=== PATIENT | male | born 1935 | race Caucasian/White ===

== ENCOUNTER 2016-06-13 14:06 | Emergency (ER) | payer MEDICARE, OTHER ==
[~2016-06-13] VITALS: Ht 180.3 cm; Wt 97.7 kg
[2016-06-13 14:06] VITALS: BP 122/74; PULSE 69; RESP 10; O2SAT 96
[~2016-06-13 14:06] MED LIST: CALCIUM 250+D1 EACH PO; CYA1000I IM; Docusate Sodium PO; EZET1TAB7 PO; LOSA50TA37 PO; NITR0.4T SL; Oxycodone Hcl PO; POLY17PO6 PO; SYN.15T2 PO; TRIA1TAB5 PO
[2016-06-13] MEDS ORDERED: 0.9% Sodium Chloride 1,000 ML IV ONE (14:07)
--- NOTE | 2016-06-13 14:16 | ED.REPORT ---
HPI-Syncope Date of Service Jun 13, 2016 ED Provider: Mr. Goodman is an 80 y/o man with history of CAD who presents today for syncopal episode while donating blood today around 12:15 PM. Pt reports that he felt lightheaded, weak, and nauseous after finishing a blood donation. He also had a cold sweat. He got up to stand but felt lightheaded so he sat back down into the donation chair recliner. He does not recall actually fainting and reports that he did not lose consciousness. He reports no loss of bowel or bladder function. He did not hit his head because he remained in the recliner chair. He last ate at breakfast this morning and took his medications this morning prior to donating blood. His symptoms have since resolved. He had episodes of vertigo 5-6 years ago but he reports that today's episode does not feel similar to the vertigo he had in the past. Today, he felt lightheaded. He does not have chest pain, dyspnea, fatigue, numbness, or tingling. Nursing Notes Stated Complaint: SYNCOPE Chief Complaint: General Complaint Nursing Notes Reviewed: Yes Allergies: Coded Allergies: No Known Allergies (Unverified , 06/13/16) Scheduled Aspirin (Aspirin) 325 Mg Tablet 325 MG PO DAILY Calcium Carbonate/Vitamin D3 (Calcium 250+D Tablet) 1 Each Tablet 1 EACH PO BID Clopidogrel Bisulfate (Plavix) 75 Mg Tablet 75 MG PO DAILY Cyanocobalamin (Cyanocobalamin Injection) 1,000 Mcg/1 Ml Vial 1,000 MCG IM 2xmonth Doxycycline Hyclate (Doxycycline Hyclate) 100 Mg Capsule 100 MG PO DAILY Ezetimibe/Simvastatin 10-40 mg (Vytorin 10-40 mg) 1 Each Tablet 1 EACH PO HS Levothyroxine (Synthroid) 150 Mcg Tablet 150 MCG PO AM Losartan Potassium (Losartan Potassium) 50 Mg Tablet 100 MG PO AM Polyethylene Glycol 3350 (Miralax) 17 Gm/Pkt Powd.pack 17 GM PO DAILY Triamterene/HCTZ 37.5-25 mg (Triamterene/HCTZ 37.5-25 mg) 1 Each Capsule 1 CAPSULE PO DAILY Scheduled PRN ([Docusate Sodium]) 100 MG CAPSULE 100 MG PO DAILY PRN PRN For Constipation Nitroglycerin SL (Nitrostat) 0.4 Mg Tab.subl 0.4 MG SL Q5MIN PRN PRN For Chest Pain General Time Seen by Provider: 14:25 Chief Complaint Almost passed out Syncope Description: First episode Hx Obtained From: Patient Associated with: Reports: Diaphoresis, Lightheaded, Weakness, Denies: Abdominal pain, Back pain, Chest pain, Fever, Flank pain, Headache, Numbness, Shortness of breath Risk-Syncope CAD Risk Stratification Hyperlipidemia Hypertension Known CADNo Amphetamine, No Cocaine, No Diabetes mellitus, No Smoking Past Medical History Past Medical History Hypertension CAD with a stent placed in 2009 Past Surgical History umbilical hernia basal cell carcinoma removed from right catholic Smoking History Never Smoker Social History Alcohol Use: Denies alcohol use Drug Use: Denies drug use Other Social History: Ambulatory Status Independent Review of Systems Basic Review of Systems : No dysuria, No frequency Hematologic: No bleeding, No bruising Constitutional: Denies: Chills, Fatigue, Fever Respiratory: Denies: Non-productive cough Cardiovascular: Denies: Chest pain GI: Denies: Abdominal pain, Diarrhea, Vomiting Musculoskeletal: Denies: Back pain Skin: Reports Diaphoresis Neurologic: Denies: Bladder dysfunction, Bowel dysfunction, Numbness Physical Exam Initial Vital Signs Vital Signs (First) Date Time Temp Pulse Resp B/P Pulse Ox O2 Delivery O2 Flow Rate FiO2 06/13/16 14:06 36.5 69 10 122/74 96 Room Air Initial VS: Reviewed Head / Eyes: Atraumatic, Normocephalic, PERRL ENT: Mucous membranes moist, Conjunctiva normal, No scleral icterus Neck: Supple, Non-tender, Full range of motion Abdomen / GI: Soft, Non-tender, No guarding, No rebound, No distention Back: No CVA tenderness Upper Extremities: Vascular intact, Neuro intact, No swelling, No tenderness Skin: Warm, Dry, No cyanosis Psychiatric: Mood/affect normal, Behavior normal, Normal thought content General/Constitutional: Awake, Alert, No acute distress, Well appearing, Cooperative Respiratory / Chest: Breath sounds NL, Breath sounds = bilat, No respiratory distress, No rales, No rhonchi, No wheezing Cardiovascular: Heart rate NL, Regular rhythm, Heart sounds NL, No gallop, No murmurs, No rubs Lower Extremity / Pelvis / MS: No swelling, Non-tender Neurologic: Oriented X3, Speech NL, CN II - XII intact Interpretation & Diagnostics Lab Results Interpretation Result Diagram: 06/13/16 1410 06/13/16 1410 Test 06/13/16 14:10 White Blood Count 6.1th/mm3 (3.8-10.1) Red Blood Count 5.40mil/mm3 (4.40-5.80) Hemoglobin 16.9g/dL (13.8-17.2) Hematocrit 47.6% (41.0-50.0) Mean Corpuscular Volume 88.1fL (81-100) Mean Corpuscular Hemoglobin 31.3pg (27.0-35.0) Mean Corpuscular Hemoglobin Concent 35.5% (32.0-37.0) Red Cell Distribution Width 12.6% (12.3-15.4) Platelet Count 207bil/L (150-400) Neutrophils (%) (Auto) 59.1% (40-74) Lymphocytes (%) (Auto) 28.9% (14-46) Monocytes (%) (Auto) 9.1% (4-12) Eosinophils (%) (Auto) 2.3% (0-5) Basophils (%) (Auto) 0.3% (0-3) Sodium Level 137mEq/L (134-144) Potassium Level 3.4mEq/L (3.5-5.2) Chloride Level 97mEq/L (97-108) Carbon Dioxide Level 26mmol/L (18-29) Blood Urea Nitrogen 13mg/dL (8-27) Creatinine 1.03mg/dL (0.76-1.27) Estimat Glomerular Filtration Rate 73mL/min (>59) Glucose Level 113mg/dL (60-99) Calcium Level 9.0mg/dL (8.5-10.1) Total Bilirubin 1.0mg/dL (0.0-1.2) Aspartate Amino Transf (AST/SGOT) 20U/L (0-50) Alanine Aminotransferase (ALT/SGPT) 15U/L (0-44) Alkaline Phosphatase 51U/L (25-160) Troponin T < 0.010ug/L (0.0-0.011) Total Protein 6.6g/dL (6.4-8.4) Albumin 4.3g/dL (3.4-5.0) Re-Eval/Medical Decision Med Decision/Clinical Course 1. Syncopal episode -Pt reports that his symptoms have resolved -Repeat EKG shows normal sinus rhythm -Troponin negative -Pt was asymptomatic standing and walking Irvin episode temporarily related to drying variety without preceding high- risk features or other ongoing symptoms, patient is now asymptomatic workup is overall unremarkable. Patient will be discharged. Re-Evaluation/Progress : Time of Eval: 15:38 )( Re-Eval Neurologic Exam: Alert, Gait normal Patient Status: Condition resolved Re-Evaluation/Progress Note: Had pt stand and walk the length of the hallway. Pt remained asymptomatic during standing and walking. DDx: ACS, pulmonary embolism, anxiety, musculoskeletal, thoracic outlet syndrome, cervical nerve impingement Discharge & Departure Impression: Primary Impression: Syncope Disposition: Home Discharge Condition All VS Reviewed: Yes Condition: Stable Patient Instructions: Hypotension (ED) Additional Instructions: The EKG performed and the blood work done tonight was not concerning for a heart problem. You likely had a low blood pressure after donating blood. Drink plenty of fluids today. Follow-up with your primary care provider in one week. Seek medical attention if you experience: loss of consciousness, numbness, tingling, weakness in her arms or legs, trouble speaking, chest pain, shortness of breath, or have a bowel or bladder accident. Referrals: OTHER,PHYSICIAN (PCP) Hernandez Momin MD 1 Week Attending Statement The patient was seen and examined together with Dr. West on 06/13/16 and I have added additional information to the note above. copies to: Hernandez Momin MD, Timothy S DO Jun 13, 2016 14:16 Kim West DO Jun 13, 2016 14:41
[2016-06-13] MEDS ORDERED: DOXY100C2 PO (14:22)
[2016-06-13] MEDS ORDERED: TRIA1CAP5 PO (14:22)
[2016-06-13] MEDS ORDERED: ASPI325T32 PO (14:22)
[2016-06-13] MEDS ORDERED: CLOP75TA3 PO (14:22)
[2016-06-13 14:36] LABS: BASOPHILS % (AUTO) 0.3 % (0-3); EOSINOPHILS % (AUTO) 2.3 % (0-5); MONOCYTES % (AUTO) 9.1 % (4-12); Mean Corpuscular Hemoglobin 31.3 pg (27.0-35.0); Mean Corpuscular Volume 88.1 fL (81-100); NEUTROPHILS % (AUTO) 59.1 % (40-74); Platelet Count 207 bil/L (150-400)
[2016-06-13 15:02] VITALS: BP 122/74; PULSE 74; RESP 16; O2SAT 97
[2016-06-13 16:22] VITALS: BP 135/73; PULSE 85; RESP 22; O2SAT 97
[2016-06-13 16:23] VITALS: BP 126/74; PULSE 85; RESP 22; O2SAT 97
== END 2016-06-13 15:46 | disposition home or self-care (01) ==
LOC: SED 14:06
DX: R55 Syncope and collapse (principal); I10 Essential (primary) hypertension; Z79.82 Long term (current) use of aspirin; I25.10 Atherosclerotic heart disease of native coronary artery without angina pectoris; Z95.5 Presence of coronary angioplasty implant and graft
CPT/HCPCS: 36415; 80053; 84484; 85025; 93005; 96360; 99285; J7030